=== PATIENT | female | born 1980 | race Caucasian/White ===

== ENCOUNTER 2018-06-09 09:52 | Emergency (ER) | payer BC ==
[~2018-06-09] VITALS: Wt 54.4 kg
[2018-06-09 09:52] VITALS: BP 148/106
[~2018-06-09 09:52] MED LIST: AMOXICILLIN500 MG PO; AMOXIL500 MG PO; ATIVAN1 MG PO; CLARITIN10 MG PO; DIFLUCAN150 MG PO; FLEXERIL10 MG PO; Fioricet 325 MG1 TAB PO; IBU800 MG PO; MOTRIN800 MG PO; NAPROSYN500 MG PO; NO DAILY MEDS; REMERON; REMERON15 MG PO; REMERON45 MG PO; SUDAFED60 MG PO; TRAMADOL HCL50 MG PO; TRIMOX500 MG PO; ULTRAM50 MG PO; VICODIN 5/500 505 MG PO; VISTARIL50 MG PO; VOLTAREN75 MG PO; ZANTAC150 MG PO; ZITHROMAX Z PA250 MG PO; ZOFRAN ODT4 MG SL; ZOFRAN4 MG PO; ZYRTEC10 MG PO; [UNRECOGNIZED DRUG - OTHER] OT
[2018-06-09] MEDS ORDERED: NAPROSYN500 MG PO (11:22)
== END 2018-06-09 11:44 | disposition home or self-care (01) ==
LOC: ED 09:52
DX: G56.02 Carpal tunnel syndrome, left upper limb (principal); M25.531 Pain in right wrist; Z79.899 Other long term (current) drug therapy

== ENCOUNTER → 2018-08-10 | Outpatient (CLI) | payer BC | END | disposition home or self-care (01) | LOC: RAD 16:48 | DX: M25.521 Pain in right elbow (principal); M25.522 Pain in left elbow; M54.2 Cervicalgia ==

== ENCOUNTER → 2020-03-22 | Outpatient (CLI) | payer OTHER ==
[2020-03-22 10:11] LABS: BASO % 0.6 % (0.0-1.0); EOS % 0.4 % (1.0-4.0); LYMPH # 1.9 10*3/uL (1.3-4.4); LYMPH % 36.9 % (27.0-41.0); MEAN CELL VOLUME 89.8 fl (81.0-99.0); MEAN CORPUSCULAR HGB 29.8 pg (27.0-31.0); MEAN CORPUSCULAR HGB CONC 33.2 g/dl (33.0-37.0); MEAN PLATELET VOLUME 9.8 fl (9.6-12.3); MONO # 0.3 10*3/uL (0.1-1.0); MONO % 6.7 % (3.0-9.0); NEUT # 2.8 10*3/uL (2.3-7.9); NEUT % 55.2 % (47.0-73.0); PLATELET COUNT AUTOMATED 333 10*3/uL (130-400); RED CELL DISTRI WIDTH 11.9 % (0-14.5); WHITE BLOOD COUNT 5.1 10*3/uL (4.8-10.8)
[2020-03-22 10:21] LABS: BILIRUBIN Negative (Negative); BLOOD Trace-Lysed (Negative); CLARITY Clear (Clear); COLOR Yellow (Yellow); GLUCOSE Negative (Negative); KETONE Negative (Negative); LEUKO ESTERASE Negative (Negative); NITRITE Negative (Negative); UROBILINOGEN 0.2 E.U./dl (0.0-1.0)
[2020-03-22 10:42] LABS: BUN 15 mg/dl (7-24); CHLORIDE 107 mmol/L (98-107); CREATININE 0.78 mg/dL (0.55-1.02); POTASSIUM 3.7 mmol/L (3.5-5.1); SGOT/AST 15 IU/L (3-35); SGPT/ALT 25 U/L (12-78); SODIUM 138 mmol/L (136-145)
[2020-03-22 10:51] LABS: BACTERIA 1+; MUCOUS 2+
[2020-03-23 08:11] LABS: COMPLEMENT C4 29 mg/dL (12-38)
[2020-03-23 13:09] LABS: ANTI-DSDNA ANTIBODIES 2 IU/mL (0-9); ANTI-RNP ANTIBODIES <0.2 AI (0.0-0.9); ANTISCLERODERMA-70 AB <0.2 AI (0.0-0.9); SJOGREN ANTI-SS-A <0.2 AI (0.0-0.9); SJOREN AB, ANTI-SS-B <0.2 AI (0.0-0.9)
== END ==
LOC: LAB 09:20
PROVIDERS: ATTEND Specialist
DX: M32.9 Systemic lupus erythematosus, unspecified (principal)

== ENCOUNTER 2020-08-23 14:19 | Emergency (ER) | payer OTHER ==
[~2020-08-23] VITALS: Ht 154.9 cm; Wt 54.4 kg
[2020-08-23 14:25] VITALS: BP 133/80
[2020-08-23] MEDS ORDERED: TYLENOL325 M1 PO ×2 (14:49→14:50)
[2020-08-23] MEDS ORDERED: NAPROXEN250 MG PO ×2 (14:49→14:50)
== END 2020-08-23 15:04 | disposition home or self-care (01) ==
LOC: ED 14:19
DX: S60.222A Contusion of left hand, initial encounter (principal); X58.XXXA Exposure to other specified factors, initial encounter; Y93.89 Activity, other specified; Y92.89 Other specified places as the place of occurrence of the external cause; Y99.8 Other external cause status